=== PATIENT | male | born 1975 | race Caucasian/White ===

== ENCOUNTER → 2019-11-27 10:06 | Outpatient (BNVA) | payer MEDICAID, SELFPAY | PROVIDERS: Family Provider Family Medicine; PCP Family Medicine; Referring Provider Licensed Practical Nurse; Visit Provider Anesthesiology Pain Medicine | DX: M54.16 Radiculopathy, lumbar region (principal); F17.210 Nicotine dependence, cigarettes, uncomplicated; Z79.899 Other long term (current) drug therapy | CPT/HCPCS: 99204; 99999 ==

== ENCOUNTER → 2019-12-03 13:11 | Outpatient (BNVA) | payer MEDICAID, SELFPAY | PROVIDERS: Family Provider Family Medicine; PCP Family Medicine; Visit Provider Anesthesiology Pain Medicine | DX: M54.16 Radiculopathy, lumbar region (principal) | CPT/HCPCS: 64483; 64484; J1040; J2001; J3490 ==

== ENCOUNTER → 2019-12-17 09:14 | Outpatient (BNVA) | payer MEDICAID, SELFPAY | PROVIDERS: Family Provider Family Medicine; PCP Family Medicine; Visit Provider Anesthesiology Pain Medicine | DX: M54.16 Radiculopathy, lumbar region (principal); M79.18 Myalgia, other site | CPT/HCPCS: 20552; 99215; J1030; J3490 ==

== ENCOUNTER 2020-02-26 13:19 | Outpatient (CLI) | payer MEDICAID, SELFPAY ==
--- NOTE | 2020-02-26 13:45 | MR_ITS ---
WS: [id number] MRI LUMBAR SPINE NONCONTRAST HISTORY: M54.16 Radiculopathy, lumbar region COMPARISON: 03/04/2019 TECHNIQUE: Sagittal and axial multisequence imaging is submitted. Mild straightening of the normal lumbar lordosis. No fractures. Mild disc desiccation at L4-5 and L5-S1. Conus terminates normally at L1. L1-L2: Normal. L2-L3: Normal. L3-L4: Shallow LEFT paracentral disc protrusion with mild ligamentum flavum hypertrophy and facet art hritis. The LEFT paracentral disc protrusion encroaches and abuts the LEFT L4 nerve root in the subar ticular recess. There is also an annular fissure. L4-L5: Mild annular disc bulge. Mild ligamentum flavum hypertrophy and facet arthritis. There is very mild encroachment and narrowing of the subarticular recesses. L5-S1: Mild annular disc bulging without significant stenosis. Paravertebral soft tissues are normal. MR/MR lumbar spine wo con* [id number] IMPRESSION: 1. LEFT paracentral and subarticular recess disc protrusion at L3-[address] on the L4 nerve root. Similar to the prior study from 03/04/2019. 2. No high-grade central stenosis. 3. No fracture.
== END 2020-02-26 13:20 | disposition home or self-care (01) ==
LOC: RADSHAW 13:23
PROVIDERS: PCP Family Medicine; Visit Provider Specialist
DX: M54.16 Radiculopathy, lumbar region (principal); M51.26 Other intervertebral disc displacement, lumbar region
CPT/HCPCS: 72148

== ENCOUNTER → 2021-07-29 11:16 | Outpatient (BNVA) | payer MEDICAID, SELFPAY | PROVIDERS: PCP Family Medicine; Referring Provider Nurse Practitioner Family; Visit Provider Orthopaedic Surgery | DX: M25.521 Pain in right elbow (principal) | CPT/HCPCS: 73080 ==